=== PATIENT | male | born 1975 ===

== ENCOUNTER → 2019-11-16 | Emergency (ER) | payer OTHER ==
[~2019-11-16] VITALS: Ht 175.3 cm; Wt 83.9 kg
[~2019-11-16] MED LIST: AMOX1TAB12 PO; GABAPENTIN400 MG PO
== END | disposition home or self-care (01) ==
LOC: ER 02:28
DX: B02.29 Other postherpetic nervous system involvement (principal)

== ENCOUNTER 2020-05-25 05:20 | Day surgery (SDC) | payer OTHER ==
[2020-05-25] MEDS ORDERED: DUI500 PO (16:26)
[2020-05-25] MEDS ORDERED: ULTRACET PO (16:26)
== END 2020-05-25 22:15 | disposition home or self-care (01) ==
LOC: CIR.AMB 05:20 → ADM 08:15 → CIR.AMB 08:15
PROVIDERS: ATTEND Orthopaedic Surgery Sports Medicine
DX: S83.231A Complex tear of medial meniscus, current injury, right knee, initial encounter (principal); M22.42 Chondromalacia patellae, left knee; M65.861 Other synovitis and tenosynovitis, right lower leg; Z20.828 Contact with and (suspected) exposure to other viral communicable diseases